=== PATIENT | female | born 1990 | race Caucasian/White ===

== ENCOUNTER 2018-06-09 17:13 | Emergency (ER) | payer OTHER ==
[~2018-06-09] VITALS: Ht 157.5 cm; Wt 126.5 kg
[~2018-06-09 17:13] MED LIST: FERR27TA PO; FOLI0.4T2 PO; PREN1TAB49 PO
[2018-06-09 17:31] VITALS: Ht 157.5 cm; Wt 126.5 kg
[2018-06-09] MEDS ORDERED: ACETAMINOPHEN 325 MG TAB PO STA (20:27)
[2018-06-09] MEDS ORDERED: ONDANSETRON 4 MG INJ IV STA (20:27)
[2018-06-09] MEDS ORDERED: SOD CHLORIDE 0.9% 1,000 ML IV STA (20:27)
--- NOTE | 2018-06-09 20:30 | ERD ---
ER Documentation Chief Complaint Chief Complaint Lower bilateral back pain, RENTERIA, N/V X 1 day HPI 27-year-old female who is . She is not sure how far along she is. She is complaining of low back pain with nausea and vomiting that began yesterday. She has no dysuria hematuria or frequency. No vaginal bleeding. No fevers. Has not taken any Tylenol. ROS All systems reviewed and are negative except as per history of present illness. Medications Home Meds Active Scripts Ondansetron (Ondansetron Odt) 4 Mg Tab.rapdis, 4 MG PO Q6H PRN for NAUSEA AND/OR VOMITING, #20 TAB Prov:STEPHON INGRAM PA-C 06/09/18 Reported Medications Ferrous Sulfate (Iron) 1 Tab Tablet, PO DAILY 10/13/11 Folic Acid* (Folic Acid*) 0.4 Mg Tablet, 0.4 MG PO DAILY 10/13/11 Vits W-Ca,Fe,Fa(<1MG) () 1 Tab Tablet, 1 TAB PO 09/02/11 Allergies Allergies: Coded Allergies: No Known Allergies (Verified Allergy, 10/13/11) FmHx Family History: No diabetes Physical Exam Vitals Vital Signs Date Temp Pulse Resp B/P (MAP) Pulse Ox O2 O2 Flow FiO2 Time Delivery Rate 06/09/18 99.1 97 18 168/88 97 17:31 (114) Physical Exam INITIAL VITAL SIGNS: Reviewed by me GENERAL: Awake, alert and oriented x 4, well appearing, nontoxic, speaking in full sentences. No acute distress HEAD: Atraumatic NECK: Supple. No masses. Full range of motion. No meningismus. No midline tenderness. RESPIRATORY: Clear to auscultation bilaterally. Symmetric chest wall rise. No wheezing or rales. No accessory muscle use. CV: Regular rate and rhythm. No murmurs, rubs, or gallops. ABDOMEN: Soft, non-distended. Nontender. Negative [place]. Negative McBurneys point tenderness. No CVA tenderness bilaterally. No guarding. No rebound. Result Diagram: 06/09/182035 Results 24 hrs Laboratory Tests Test 06/09/18 20:36 White Blood Count 15.7 10^3/ul Red Blood Count 4.95 10^6/ul Hemoglobin 14.0 g/dl Hematocrit 42.1 % Mean Corpuscular Volume 85.1 fl Mean Corpuscular Hemoglobin 28.3 pg Mean Corpuscular Hemoglobin Concent 33.3 g/dl Red Cell Distribution Width 13.4 % Platelet Count 412 10^3/UL Mean Platelet Volume 9.8 fl Immature Granulocytes % 0.800 % Neutrophils % 60.7 % Lymphocytes % 28.1 % Monocytes % 8.2 % Eosinophils % 1.7 % Basophils % 0.5 % Nucleated Red Blood Cells % 0.0 /100WBC Immature Granulocytes # 0.130 10^3/ul Neutrophils # 9.5 10^3/ul Lymphocytes # 4.4 10^3/ul Monocytes # 1.3 10^3/ul Eosinophils # 0.3 10^3/ul Basophils # 0.1 10^3/ul Nucleated Red Blood Cells # 0.0 10^3/ul Urine Color YELLOW Urine Clarity SLIGHTLY CLOUDY Urine pH 6.0 Urine Specific [place] 1.019 Urine Ketones NEGATIVE mg/dL Urine Nitrite NEGATIVE mg/dL Urine Bilirubin NEGATIVE mg/dL Urine Urobilinogen NEGATIVE mg/dL Urine Leukocyte Esterase NEGATIVE Ron/ul Urine Microscopic RBC 2 /HPF Urine Microscopic WBC 2 /HPF Urine Squamous Epithelial Cells FEW /HPF Urine Hemoglobin NEGATIVE mg/dL Urine Glucose NEGATIVE mg/dL Urine Total Protein NEGATIVE mg/dl Current Medications Medications Dose Sig/Melvi Start Time Status Last (Trade) Ordered Route PRN Stop Time Admin Dose Reason Admin Sodium 1,000 ml @ Q1H STAT 06/09/18 DC 06/09/18 Chloride 1,000 mls/hr IV 20:27 06/09/18 20:37 21:26 1,000 mg ONCE STAT 06/09/18 DC 06/09/18 Acetaminophen PO 20:27 06/09/18 20:38 (Tylenol 20:29 Tab) Ondansetron 4 mg ONCE STAT 06/09/18 DC 06/09/18 HCl (Zofran IV 20:27 06/09/18 20:37 Inj) 20:29 Procedures/MDM This is a female who has back pain with nausea and vomiting since yesterday. She does not know how far along she is. She has no vaginal bleeding. Patient has a white count of 15 otherwise labs are unremarkable and her urine is clean. Ultrasound shows normal IUP approximately 8 weeks. Patient was given copy of the results that she can follow-up with [facility] as well as prescription for Zofran. Patient felt much better after the IV fluids. Patient counseled regarding my diagnostic impression and care plan. Prior to discharge all questions answered. Pt agrees with treatment plan and understands strict return precautions. Pt is instructed to follow up with primary care provider within 24-48 hours. Precautionary instructions provided including instructions to return to the ER if not improving or for any worsening or changing symptoms or concerns. Departure Diagnosis: Primary Impression: Back pain affecting in first trimester Additional Impression: Nausea and vomiting Condition: Stable STEPHON INGRAM PA-C Jun 09, 2018 20:30
[2018-06-09] MEDS ORDERED: ONDA4TAB14 PO (22:03)
[2018-06-09 22:20] VITALS: BP 115/68; PULSE 95; RESP 18
== END 2018-06-09 22:22 | disposition home or self-care (01) ==
LOC: FTE 17:13
DX: O99.89 Other specified diseases and conditions complicating pregnancy, childbirth and the puerperium (principal); M54.5 Low back pain; Z3A.08 8 weeks gestation of pregnancy
CPT/HCPCS: 36415; 76801; 81001; 84702; 85025; 86900; 86901; 96374; J2405; J7030; Z7502; Z7610; 81003

== ENCOUNTER 2018-07-07 15:39 | Inpatient (IN) | payer OTHER ==
[~2018-07-07] VITALS: Ht 162.6 cm; Wt 132.3 kg
[~2018-07-07 15:39] MED LIST changes: +ONDA4TAB14 PO
[2018-07-07 16:33] VITALS: Ht 162.6 cm; Wt 132.3 kg
--- NOTE | 2018-07-07 18:46 | HP ---
Date/Time of Note Date/Time of Note DATE: 07/07/18 TIME: 18:41 OB - History Hx of Present Chief Complaint: uncontrolled DM Estimated Due Date: Jan 14, 2019 : 2 Para: 1 Spontaneous : 0 Therapeutic : 0 Ultrasounds: Other (ultrasound 07/02/18 12 weeks) Obstetrical Complications: Gestational Diabetes Medical Complications: None Past Family/Social History * Past Medical, Surgical, Family and Obstetric Histories reviewed from chart. OB Admission Exam Physical Exam HEENT: WNL Heart: Rhythm Normal Lungs: Clear, Equal Abdomen: WNL Extremities: Normal Reflexes: Normal Last 72 hourBlood Glucose Bedside Glucose - 72 Hours Test 07/07/18 17:22 07/07/18 18:21 Bedside Glucose 132 mg/dL (70-220) 119 mg/dL (70-220) Last 72 hours Lab Results CBC & BMP 07/07/18 17:16 Liver Function Test 07/07/18 17:16 Alanine Aminotransferase (ALT/SGPT) 11 L Albumin 3.6 Alkaline Phosphatase 55 Aspartate Amino Transf (AST/SGOT) 24 Direct Bilirubin 0.00 Total Protein 7.0 Hemoglobin A1C Test 07/07/18 17:20 Hemoglobin A1c 5.8 OB Assessment/Plan Reason for admission: other Other Assessment: 12 weeks and 5 days uncontrolled DM Plan: Other Other plan: Admit Diabetic diet Diabetic teaching Monitor blood glucose Rerinatology consult BREANN ELLIS MD Jul 07, 2018 18:46
[2018-07-07] MEDS ORDERED: DEXTROSE 50% 50 ML SYRINGE IV PRN ×4 (19:00→20:00)
[2018-07-07] MEDS ORDERED: GLUCAGON 1 MG INJ IM PRN ×2 (19:00→20:00)
[2018-07-07] MEDS ORDERED: GLUCOSE GEL 15 GRAM TUBE PO PRN ×4 (19:00→20:00)
[2018-07-07] MEDS ORDERED: GLUCOSE GEL 15 GRAM TUBE BUCCAL PRN ×2 (19:00→20:00)
[2018-07-07] MEDS ORDERED: ACCU-CHEK XX SCH (20:05)
[2018-07-07] MEDS: ACCU-CHEK XX SCH (20:27)
[2018-07-07] MEDS ORDERED: INSULIN ASPART [NOVOLOG] 3 ML PEN SC SCH (21:00)
[2018-07-08] MEDS ORDERED: INSULIN ASPART [NOVOLOG] 3 ML PEN SC SCH (07:35)
[2018-07-08] MEDS: ACCU-CHEK XX SCH ×4 (08:39→19:58)
[2018-07-08] MEDS: PRENATAL VITAMIN PO SCH (09:06)
[2018-07-08] MEDS: FERROUS SULFATE (EC) 325 MG TAB PO SCH (09:06)
[2018-07-08] MEDS: FOLIC ACID 0.4 MG TAB PO SCH (11:00)
[2018-07-08] MEDS ORDERED: CEPASTAT LOZENGE MT PRN (14:00)
--- NOTE | 2018-07-08 14:14 | RADRPT ---
Vent Rate: 94 bpm RR Interval: 0 msec DC Interval: 126 msec QRS Duration: 94 msec QT Interval: 356 msec QTC Interval: 445 msec P-R-T [place]: 31 - 64 - 37 degrees Normal sinus rhythm Normal ECG Electronically Signed By: Carlos Alberto Solano
[2018-07-08] MEDS: GUAIFENESIN/DM 5ML CUP PO PRN (14:52)
--- NOTE | 2018-07-08 15:02 | QN ---
Documentation Comment No complaint Afebrile VSS Management of DM per Perinatology. BREANN ELLIS MD Jul 08, 2018 15:02
[2018-07-08] MEDS ORDERED: INSULIN LISPRO 100 UNIT/ML VIAL SC SCH (17:35)
[2018-07-08] MEDS ORDERED: NPH, HUMAN INSULIN ISOPHANE 3ML VIAL SC SCH (21:00)
[2018-07-09] MEDS ORDERED: NPH, HUMAN INSULIN ISOPHANE 3ML VIAL SC SCH ×2 (07:35→21:00)
[2018-07-09] MEDS: ACCU-CHEK XX SCH ×4 (08:50→19:55)
[2018-07-09] MEDS: FOLIC ACID 0.4 MG TAB PO SCH (08:52)
[2018-07-09] MEDS: PRENATAL VITAMIN PO SCH (08:53)
[2018-07-09] MEDS: FERROUS SULFATE (EC) 325 MG TAB PO SCH (08:53)
[2018-07-09] MEDS: GUAIFENESIN/DM 5ML CUP PO PRN (11:14)
--- NOTE | 2018-07-09 16:23 | QN ---
Documentation Comment No complaint Afebrile VSS Blood glucose still elevated Adjust insulin per Perinatology. BREANN ELLIS MD Jul 09, 2018 16:23
[2018-07-09] MEDS: INSULIN LISPRO 100 UNIT/ML VIAL SC SCH (17:45)
--- NOTE | 2018-07-10 04:56 | CONS ---
DATE OF ADMISSION: 07/07/2018 DATE OF CONSULTATION: 07/08/2018 The patient is a 27-year-old G2, P1 with uncontrolled diabetes at 12 weeks and 6/7 on the , was ad mitted for diabetes control. Yesterday, we started the patient on insulin and today I adjusted her i nsulin regimen further. If tomorrow, which is Wednesday the , if her glucose control is adequate, she can be discharged home with followup as outpatient and I will talk to the patient about the further consult. Please make sure that prior to discharge, she has had nutrition consult, she is able to inject insuli n and please give her the glucometer and anything else that she needs with her insulin as well as the insulin regimen. Dictated By: DANIEL VALERIO MD ST/NTS Conf#: [id number] DID#: [id number] CC: BREANN ELLIS MD;*EndCC*
[2018-07-10] MEDS ORDERED: NPH, HUMAN INSULIN ISOPHANE 3ML VIAL SC SCH ×2 (07:35)
[2018-07-10] MEDS: ACCU-CHEK XX SCH ×3 (08:58→16:15)
[2018-07-10] MEDS: FERROUS SULFATE (EC) 325 MG TAB PO SCH (09:15)
[2018-07-10] MEDS: PRENATAL VITAMIN PO SCH (09:15)
[2018-07-10] MEDS: FOLIC ACID 0.4 MG TAB PO SCH (09:15)
[2018-07-10] MEDS: GUAIFENESIN/DM 5ML CUP PO PRN (11:00)
[2018-07-10] MEDS: INSULIN LISPRO 100 UNIT/ML VIAL SC SCH (17:45)
--- NOTE | 2018-07-10 18:38 | DS ---
Date/Time of Note Date/Time of Note DATE: 07/10/18 TIME: 18:37 Obstetrical Discharge Record Final Diagnosis Final Diagnosis: not delivered Other Final Diagnosis GDM controlled by insulin Complications Insulin Dependent Diabete Condition on Discharge Physical Assessment Voiding: Yes Bowel Movement: Yes Calf Tenderness: No Patient Condition: Stable BREANN ELLIS MD Jul 10, 2018 18:38
== END 2018-07-10 18:46 | disposition home or self-care (01) | DRG 833 ==
LOC: OBT 15:39 → L-D 15:44 → OBT 16:20 → PP1 16:20
PROVIDERS: ADMIT Obstetrics & Gynecology; ATTEND Obstetrics & Gynecology
DX: O24.414 Gestational diabetes mellitus in pregnancy, insulin controlled (principal); Z3A.12 12 weeks gestation of pregnancy
CPT/HCPCS: 80053; 81003; 82575; 82962; 83036; 84156; 84560; 85025; 85384; 85610; 85730; 87086; 93005; G0463; J1815

== ENCOUNTER 2018-10-20 19:09 | Outpatient (CLI) | payer OTHER ==
[~2018-10-20] VITALS: Ht 162.6 cm; Wt 142.3 kg
[~2018-10-20 19:09] MED LIST changes: -ONDA4TAB14 PO
[2018-10-20 20:20] VITALS: BP 124/75; PULSE 98; RESP 18
[2018-10-20] MEDS ORDERED: NOV70303I SC (21:04)
[2018-10-20] MEDS ORDERED: NOVO7030 SC (21:04)
[2018-10-20] MEDS ORDERED: INSU100C SQ (21:04)
[2018-10-20] MEDS ORDERED: ACETAMINOPHEN 500 MG TAB PO ONE (21:11)
--- NOTE | 2018-10-21 01:00 | TRIAGE ---
OB Triage Datetime Report Generated by CPN: 10/21/2018 01:00 Datetime: 10/20/2018 21:33 Labor Evaluation Monitor Mode: External Heart Rate Monitor Mode: External US Datetime: 10/20/2018 20:00 Time of Arrival: 10/20/2018 18:57 EGA: 27.5 Arrived By: Ambulatory Arrived From: Home Chief Complaint: sent from clinic w/ orders for PIH labs and u/s d/t elevated BP today Movement: Present Contractions: Denies/Absent Rupture of Membranes: Denies Vaginal Bleeding: None Vaginal Discharge: Denies Recent Sexual Intercouse: Denies Abdominal Trauma: Not Applicable Patient Complaints: Headache Additional Patient Complaints: A2DM Time Provider Notified: 10/20/2018 19:30 Provider Notified: Dr Gruber Initial Plan: NST,CBC,CMP,URIC ACID,BPP,EFW Datetime: 07/10/2018 17:50 Maternal Assessment Level of Consciousness: Fully Conscious Headache: Denies Blurred Vision: No Respiratory Effort: Unlabored Nausea/Vomiting: Denies RUQ Epigastric Pain: Denies Pain Presence: None/Denies Datetime: 07/10/2018 16:43 Maternal Assessment Level of Consciousness: Fully Conscious Headache: Denies Blurred Vision: No Respiratory Effort: Unlabored Nausea/Vomiting: Denies Pain Presence: None/Denies Datetime: 07/10/2018 15:31 Stage of : Antepartum Maternal Assessment Level of Consciousness: Fully Conscious Headache: Denies Blurred Vision: No Respiratory Effort: Unlabored Nausea/Vomiting: Denies RUQ Epigastric Pain: Denies Pain Presence: None/Denies Datetime: 07/10/2018 15:08 Stage of : Antepartum Bedside Blood Glucose: 96 Datetime: 07/10/2018 14:30 Stage of : Antepartum Datetime: 07/10/2018 12:58 Stage of : Antepartum Datetime: 07/10/2018 12:01 Stage of : Antepartum Temperature Route: Oral Pain Assessment Pain Scale: 0 Pain Presence: None/Denies Pain Type: N/A Datetime: 07/10/2018 11:21 Stage of : Antepartum Datetime: 07/10/2018 11:05 Stage of : Antepartum Bedside Blood Glucose: 98 (Annotations: 2 hour PPBS) Datetime: 07/10/2018 09:19 Stage of : Antepartum Temperature Route: Oral Datetime: 07/10/2018 08:58 Stage of : Antepartum Bedside Blood Glucose: 85 (Annotations: Fasting) Datetime: 07/10/2018 08:00 Assessment Type: Ongoing Assessment Maternal Assessment Level of Consciousness: Fully Conscious DTR's/Clonus: DTRs 2+; No Clonus Headache: Denies Blurred Vision: No Respiratory Effort: Unlabored; Regular Rhythm; Equal Expansion Breath Sounds, Left: Clear and Equal Breath Sounds, Right: Clear and Equal Nausea/Vomiting: Denies RUQ Epigastric Pain: Denies Lower Extremities Edema: None Degree: None Upper Extremities Edema: None Degree: None Facial Edema: None Fall Risk Assessment History of Falling: (0) No Secondary Diagnosis: (0) No Ambulatory Aid: (0) Bedrest/Nurse Assist IV Therapy: (0) No Gait: (0) Normal/Bedrest/Immobile Mental Status: (0) Oriented to Own Ability Fall Score: 0 Fall Risk Score Definition: No Risk: No action required Datetime: 07/10/2018 07:19 Stage of : Antepartum Datetime: 07/10/2018 04:08 Stage of : Antepartum Temperature Route: Oral Pain Assessment Pain Scale: 0 Pain Presence: None/Denies Pain Goal: 0 Datetime: 07/09/2018 23:31 Stage of : Antepartum Temperature Route: Oral Pain Assessment Pain Scale: 0 Pain Presence: None/Denies Pain Goal: 0 Datetime: 07/09/2018 20:03 Assessment Type: Ongoing Assessment Maternal Assessment Level of Consciousness: Fully Conscious DTR's/Clonus: DTRs 2+; No Clonus Headache: Denies Blurred Vision: No Respiratory Effort: Unlabored; Regular Rhythm; Equal Expansion Breath Sounds, Left: Clear and Equal Breath Sounds, Right: Clear and Equal Nausea/Vomiting: Denies RUQ Epigastric Pain: Denies Lower Extremities Edema: None Degree: None Upper Extremities Edema: None Degree: None Facial Edema: None Fall Risk Assessment History of Falling: (0) No Secondary Diagnosis: (0) No Ambulatory Aid: (0) Bedrest/Nurse Assist IV Therapy: (0) No Gait: (0) Normal/Bedrest/Immobile Mental Status: (0) Oriented to Own Ability Fall Score: 0 Fall Risk Score Definition: No Risk: No action required Datetime: 07/09/2018 19:58 Stage of : Antepartum Temperature Route: Oral Bedside Blood Glucose: 90 Pain Assessment Pain Scale: 0 Pain Presence: None/Denies Pain Goal: 0 Datetime: 07/09/2018 17:06 Stage of : Antepartum Temperature Route: Oral Pain Assessment Pain Scale: 0 Pain Presence: None/Denies Pain Goal: 0 Datetime: 07/09/2018 12:54 Stage of : Antepartum Temperature Route: Oral Pain Assessment Pain Scale: 0 Pain Presence: None/Denies Pain Goal: 0 Datetime: 07/09/2018 09:00 Assessment Type: Ongoing Assessment Maternal Assessment Level of Consciousness: Fully Conscious DTR's/Clonus: DTRs 2+; No Clonus Headache: Denies Blurred Vision: No Respiratory Effort: Unlabored; Regular Rhythm; Equal Expansion Breath Sounds, Left: Clear and Equal Breath Sounds, Right: Clear and Equal Nausea/Vomiting: Denies RUQ Epigastric Pain: Denies Facial Edema: None Fall Risk Assessment History of Falling: (0) No Secondary Diagnosis: (0) No Ambulatory Aid: (0) Bedrest/Nurse Assist IV Therapy: (0) No Gait: (0) Normal/Bedrest/Immobile Mental Status: (0) Oriented to Own Ability Fall Score: 0 Fall Risk Score Definition: No Risk: No action required Datetime: 07/08/2018 23:49 Temperature Route: Oral Pain Assessment Pain Scale: 0 Pain Presence: None/Denies Datetime: 07/08/2018 20:38 Bedside Blood Glucose: 190 Datetime: 07/08/2018 19:39 Assessment Type: Ongoing Assessment Maternal Assessment Level of Consciousness: Fully Conscious Headache: Denies Blurred Vision: No Respiratory Effort: Unlabored; Regular Rhythm; Equal Expansion Nausea/Vomiting: Denies RUQ Epigastric Pain: Denies Lower Extremities Edema: None Upper Extremities Edema: None Facial Edema: None Temperature Route: Oral Fall Risk Assessment History of Falling: (0) No Secondary Diagnosis: (0) No Ambulatory Aid: (0) Bedrest/Nurse Assist IV Therapy: (0) No Gait: (0) Normal/Bedrest/Immobile Mental Status: (0) Oriented to Own Ability Fall Score: 0 Fall Risk Score Definition: No Risk: No action required Pain Assessment Pain Scale: 0 Pain Presence: None/Denies Datetime: 07/08/2018 17:55 Stage of : Antepartum Pain Assessment Pain Scale: 0 Pain Presence: None/Denies Pain Type: N/A Datetime: 07/08/2018 15:44 Stage of : Antepartum Temperature Route: Oral Datetime: 07/08/2018 14:48 Stage of : Antepartum Bedside Blood Glucose: 119 (Annotations: 2 HOUR PPBS) Datetime: 07/08/2018 13:30 Stage of : Antepartum Datetime: 07/08/2018 12:42 Temperature Route: Oral Datetime: 07/08/2018 12:40 Stage of : Antepartum Datetime: 07/08/2018 11:15 Stage of : Antepartum Datetime: 07/08/2018 11:10 Stage of : Antepartum Datetime: 07/08/2018 10:58 Bedside Blood Glucose: 90 (Annotations: 2 hour post prandial) Datetime: 07/08/2018 08:39 Stage of : Antepartum Bedside Blood Glucose: 100 (Annotations: FBS) Datetime: 07/08/2018 08:05 Stage of : Antepartum Datetime: 07/08/2018 07:59 Assessment Type: Ongoing Assessment Maternal Assessment Level of Consciousness: Fully Conscious DTR's/Clonus: DTRs 2+; No Clonus Headache: Denies Blurred Vision: No Respiratory Effort: Unlabored; Regular Rhythm; Equal Expansion Breath Sounds, Left: Clear and Equal Breath Sounds, Right: Clear and Equal Nausea/Vomiting: Denies RUQ Epigastric Pain: Denies Lower Extremities Edema: None Degree: None Upper Extremities Edema: None Degree: None Facial Edema: None Fall Risk Assessment History of Falling: (0) No Secondary Diagnosis: (0) No Ambulatory Aid: (0) Bedrest/Nurse Assist IV Therapy: (0) No Gait: (0) Normal/Bedrest/Immobile Mental Status: (0) Oriented to Own Ability Fall Score: 0 Fall Risk Score Definition: No Risk: No action required Datetime: 07/08/2018 04:55 Maternal Assessment Level of Consciousness: Fully Conscious Headache: Denies Blurred Vision: No Pain Presence: None/Denies Datetime: 07/07/2018 21:51 Bedside Blood Glucose: 108 (Annotations: HS) Datetime: 07/07/2018 20:22 Bedside Blood Glucose: 155 (Annotations: 2 HRS PP DINNER.) Datetime: 07/07/2018 20:00 Stage of : Antepartum Assessment Type: Ongoing Assessment Maternal Assessment Level of Consciousness: Fully Conscious DTR's/Clonus: DTRs 2+; No Clonus Headache: Denies Blurred Vision: No Respiratory Effort: Unlabored; Regular Rhythm; Equal Expansion Breath Sounds, Left: Clear and Equal Breath Sounds, Right: Clear and Equal Nausea/Vomiting: Denies RUQ Epigastric Pain: Denies Lower Extremities Edema: None Degree: None Upper Extremities Edema: None Degree: None Facial Edema: None Temperature Route: Oral Fall Risk Assessment History of Falling: (0) No Secondary Diagnosis: (0) No Ambulatory Aid: (0) Bedrest/Nurse Assist IV Therapy: (0) No Gait: (0) Normal/Bedrest/Immobile Mental Status: (0) Oriented to Own Ability Fall Score: 0 Fall Risk Score Definition: No Risk: No action required Datetime: 07/07/2018 17:11 Assessment Type: Admission Assessment Vaginal Bleeding: None Maternal Assessment Level of Consciousness: Fully Conscious DTR's/Clonus: DTRs 2+; No Clonus Headache: Denies Blurred Vision: No Respiratory Effort: Unlabored; Regular Rhythm; Equal Expansion Breath Sounds, Left: Clear and Equal Breath Sounds, Right: Clear and Equal Nausea/Vomiting: Denies RUQ Epigastric Pain: Denies Facial Edema: None Fall Risk Assessment History of Falling: (0) No Secondary Diagnosis: (0) No Ambulatory Aid: (0) Bedrest/Nurse Assist IV Therapy: (0) No Gait: (0) Normal/Bedrest/Immobile Mental Status: (0) Oriented to Own Ability Fall Score: 0 Fall Risk Score Definition: No Risk: No action required Pain Assessment Pain Scale: 0 Pain Presence: None/Denies Datetime: 07/07/2018 17:00 Time of Arrival: 07/07/2018 17:00 EGA: 12.5 Arrived By: Wheelchair Datetime: 07/07/2018 16:22 Stage of : OB Triage Datetime: 07/07/2018 16:01 Stage of : OB Triage Datetime: 07/07/2018 15:58 Stage of : OB Triage Assessment Type: Triage Maternal Assessment Level of Consciousness: Fully Conscious DTR's/Clonus: DTRs 2+; No Clonus Headache: Denies Blurred Vision: No Respiratory Effort: Unlabored; Regular Rhythm; Equal Expansion Breath Sounds, Left: Clear and Equal Breath Sounds, Right: Clear and Equal Nausea/Vomiting: Denies RUQ Epigastric Pain: Denies Facial Edema: None Temperature Route: Axillary Fall Risk Assessment History of Falling: (0) No Secondary Diagnosis: (0) No Ambulatory Aid: (0) Bedrest/Nurse Assist IV Therapy: (0) No Gait: (0) Normal/Bedrest/Immobile Mental Status: (0) Oriented to Own Ability Fall Score: 0 Fall Risk Score Definition: No Risk: No action required Heart Rate Monitor Mode: Doppler (Annotations: UNABLE TO LOCATE, U/S AT BS, FHT 154) Pain Assessment Pain Scale: 0 Pain Presence: None/Denies Pain Type: N/A Pain Goal: 3 Pain Relief Measures: Comfort Measures Datetime: 07/07/2018 15:57 Time of Arrival: 07/07/2018 15:20 EGA: 12.5 Arrived By: Ambulatory Arrived From: Office Chief Complaint: REFERRED FROM OFFICE FOR UNCONTROLLED DIABETES Movement: Absent Contractions: Denies/Absent Rupture of Membranes: Denies Vaginal Bleeding: None Vaginal Discharge: Denies Recent Sexual Intercouse: Denies Abdominal Trauma: Not Applicable Patient Complaints: None Time Provider Notified: 07/07/2018 15:20 Provider Notified: shin Initial Plan: DOPPLER T
--- NOTE | 2018-10-21 10:47 | PN ---
Triage Information Date/Time late entry for service rendered [id number] on 10/20/18 Reason for visit: elevated BP with headache on occipital region Weeks of Gestation 27w5d /Para Diabetes: none Diabetes management: insulin controlled Hypertention: induced Additional information at the clinic 150/80 Objective highest BP at triage was 124/75 Vital Signs Date Temp Pulse Resp B/P (MAP) Pulse Ox O2 O2 Flow FiO2 Time Delivery Rate 10/20/18 98.6 98 18 124/75 Room Air 20:20 (91) Heart Rate: 140's Results/Medications Result Diagram: 10/20/18203610/20/182036 Results 24 hrs Laboratory Tests Test 10/20/18 19:30 10/20/18 20:37 Urine Color YELLOW Urine Clarity SLIGHTLY CLOUDY A Urine pH 6.0 Urine Specific [place] 1.023 Urine Ketones TRACE A Urine Nitrite NEGATIVE Urine Bilirubin NEGATIVE Urine Urobilinogen 1+ H Urine Leukocyte Esterase NEGATIVE Urine Microscopic RBC 1 Urine Microscopic WBC 3 Urine Squamous Epithelial Cells FEW Urine Bacteria FEW A Urine Hemoglobin NEGATIVE Urine Glucose 1+ H Urine Total Protein NEGATIVE White Blood Count 11.2 H Red Blood Count 4.00 L Hemoglobin 11.8 L Hematocrit 34.3 L Mean Corpuscular Volume 85.8 Mean Corpuscular Hemoglobin 29.5 Mean Corpuscular Hemoglobin Concent 34.4 Red Cell Distribution Width 13.5 Platelet Count 312 Mean Platelet Volume 10.2 Immature Granulocytes % 0.800 H Neutrophils % 62.8 Lymphocytes % 24.5 Monocytes % 9.4 Eosinophils % 2.1 Basophils % 0.4 Nucleated Red Blood Cells % 0.0 Immature Granulocytes # 0.090 H Neutrophils # 7.0 Lymphocytes # 2.7 Monocytes # 1.1 H Eosinophils # 0.2 Basophils # 0.0 Nucleated Red Blood Cells # 0.0 Sodium Level 134 L Potassium Level 3.6 Chloride Level 104 Carbon Dioxide Level 24 Anion Gap 6 Blood Urea Nitrogen 8 Creatinine 0.52 Est Glomerular Filtrat Rate mL/min > 60 Glucose Level 121 Uric Acid 4.1 Calcium Level 8.8 Total Bilirubin 0.2 Direct Bilirubin 0.00 Indirect Bilirubin 0.2 Aspartate Amino Transf (AST/SGOT) 25 Alanine Aminotransferase (ALT/SGPT) 20 Alkaline Phosphatase 89 Total Protein 6.7 Albumin 3.3 Globulin 3.40 H Albumin/Globulin Ratio 0.97 Medications tylenol Imaging Results BPP 8/8 EFW 1143 38.4% MVP 5.8 Disposition: Discharge Assessment/Plan A IUP 27w5d R/O GHTN A2DM P f/u at her OB on next appoinment SHARAD STUBBS MD Oct 21, 2018 10:43
== END 2018-10-20 23:11 | disposition home or self-care (01) ==
LOC: OBT 19:09 → L-D 19:10 → OBT 23:11
PROVIDERS: ATTEND Obstetrics & Gynecology
DX: O13.2 Gestational [pregnancy-induced] hypertension without significant proteinuria, second trimester (principal); O24.414 Gestational diabetes mellitus in pregnancy, insulin controlled; O26.892 Other specified pregnancy related conditions, second trimester; R51 Headache; Z3A.27 27 weeks gestation of pregnancy
CPT/HCPCS: 76815; 76818; 80053; 81001; 84560; 85025; Z7500; Z7610; 81003; G0463